=== PATIENT | female | born 1965 ===

== ENCOUNTER 2018-08-17 14:16 | Emergency (ER) | payer MEDICAID ==
[2018-08-17] MEDS ORDERED: Naproxen 550 mg Tab PO STA (15:56)
[2018-08-17] MEDS ORDERED: Naproxen 550 mg Tab PO ONE (16:09)
--- NOTE | 2018-08-17 16:29 | RAD ---
Date of service: 08/17/2018 PROCEDURE: Radiographs of the Lumbar Spine. HISTORY: Pain. COMPARISON: Comparison made with plain film radiographs lumbar spine 03/05/2014. FINDINGS: BONES: No acute compression fractures no retropulsed fragments. Vertebral bodies exhibit normal stature. Vertebral bodies and facets normally aligned. DISC SPACES: Minor multilevel degenerative spondylosis. Minor disc space narrowing seen in the upper lumbar and lower thoracic disc space levels. In addition, there are mild endplate eburnation changes and small marginal anterolateral and tiny posterior osteophyte formation.. Minor facet arthropathy OTHER FINDINGS: None. IMPRESSION: No acute fractures. Minor degenerative spondylosis as described
[2018-08-17 16:37] LABS: SQUAMOUS EPITHIAL 6 /hpf (0-5); URINE BACTERIA OCC (<OCC); URINE BILIRUBIN NEGATIVE (NEGATIVE); URINE BLOOD NEGATIVE (NEGATIVE); URINE CLARITY Clear (Clear); URINE COLOR Yellow (YELLOW); URINE GLUCOSE (UA) NORMAL (Normal); URINE LEUKOCYTE ESTERASE TRACE Leu/uL (Negative); URINE PROTEIN NEGATIVE (NEGATIVE); URINE UROBILINOGEN NORMAL mg/dL (0.2-1.0)
--- NOTE | 2018-08-17 17:16 | C.PDOC ---
History Of Present Illness 52 year old female presents to the emergency department with complaints of left- sided lower back pain that began one week ago. Patient states that the pain is aggravated by movement. She states that she has no history of similar episodes in the past. Denies dysuria, frequency, urinary or bowel incontinence, change in sensation, abdominal pain, trauma, or rectal pain. She states that she took Tylenol yesterday, nothing today. Time Seen by Provider: 08/17/18 15:05 Chief Complaint (Nursing): Back Pain History Per: Patient History/Exam Limitations: no limitations Onset/Duration Of Symptoms: Other (one week) Current Symptoms Are (Timing): Still Present Quality Of Discomfort: "Pain" Associated Symptoms: denies: Incontinence, New Weakness, New Numbness Exacerbating Factor(s): Movement Past Medical History Reviewed: Historical Data, Nursing Documentation, Vital Signs Vital Signs: Last Vital Signs Temp 98.3 F 08/17/18 14:28 Pulse 81 08/17/18 14:28 Resp 18 08/17/18 14:28 BP 115/75 08/17/18 14:28 Pulse Ox 98 08/17/18 14:28 - Medical History PMH: Hypothyroidism Surgical History: No Surg Hx Family History: States: Unknown Family Hx - Social History Hx Tobacco Use: No Hx Alcohol Use: No Hx Substance Use: No - Immunization History Hx Tetanus Toxoid Vaccination: No Hx Influenza Vaccination: No Hx Pneumococcal Vaccination: No Review Of Systems Except As Marked, All Systems Reviewed And Found Negative. Constitutional: Negative for: Fever, Chills Genitourinary: Negative for: Dysuria, Frequency, Incontinence Musculoskeletal: Positive for: Back Pain Neurological: Negative for: Weakness, Numbness Physical Exam - Physical Exam Appears: Well, Non-toxic, No Acute Distress Skin: Normal Color, Warm, Dry Head: Atraumatic, Normacephalic Eye(s): bilateral: Normal Inspection, EOMI Nose: Normal Oral Mucosa: Moist Neck: Normal ROM, Supple Chest: Symmetrical Respiratory: No Accessory Muscle Use Gastrointestinal/Abdominal: Soft, No Tenderness, No Guarding, No Rebound Back: No CVA Tenderness, No Vertebral Tenderness, Paraspinal Tenderness (left- sided paralumbar tenderness) Extremity: Normal ROM, No Tenderness Pulses: Left Dorsalis Pedis: Normal, Right Dorsalis Pedis: Normal Neurological/Psych: Oriented x3, Normal Speech, Normal Motor, Normal Sensation Gait: Steady ED Course And Treatment O2 Sat by Pulse Oximetry: 98 (RA) Pulse Ox Interpretation: Normal Progress Note: Plan: Naproxen 550mg PO. Urine Culture. XR LS Spine. Urinalysis. Previous visits noted, pt had similar symptoms in 2013. On reassessment, patient is resting comfortably, with improvement of back pain. Patient remains afebrile, with no bony tenderness, extremity numbness or weakness, or abdominal pain. Patient is ambulatory in the emergency department with no signs of discomfort. Patient was advised to follow up with physician/clinic in 1-2 days. Reevaluation Time: 17:00 Reassessment Condition: Improved Disposition - Disposition Disposition: HOME/ ROUTINE Disposition Time: 17:13 Condition: STABLE Additional Instructions: Vaya a crenshaw mdico o la clnica en 2-5 antonio sin falta, para mas evaluacin. [place] los medicamentos fabio indicado. Volver a la citlalli de emergencia en cualquier momento si los sntomas persisten o empeoran. Prescriptions: Metaxalone [Skelaxin] 800 mg PO BID #14 tablet Naproxen [Naprosyn] 1 tab PO BID PRN #20 tab PRN Reason: Pain Instructions: Low Back Pain (DC) Forms: [employer] (Turkmen) Print Language: GUAMANIAN - Clinical Impression Clinical Impression: Low back pain - PA / NARCOTICS INVESTIGATOR / Resident Statement MD/DO has reviewed & agrees with the documentation as recorded. - Scribe Statement The provider has reviewed the documentation as recorded by the Scribe All medical record entries made by the Scribe were at my direction and personally dictated by me. I have reviewed the chart and agree that the record accurately reflects my personal performance of the history, physical exam, medical decision making, and the department course for this patient. I have also personally directed, reviewed, and agree with the discharge instructions and disposition.
[2018-08-17 17:27] VITALS: BP 127/79; PULSE 70; RESP 16; TEMP 98
[2018-08-17 17:37] VITALS: O2SAT 98
== END 2018-08-17 17:28 | disposition home or self-care (01) ==
LOC: C.ER 14:16
DX: M54.5 Low back pain (principal); E03.9 Hypothyroidism, unspecified